=== PATIENT | female | born 1975 | race Caucasian/White ===

== ENCOUNTER 2020-04-19 15:49 | Inpatient (IN) | payer OTHER ==
[~2020-04-19] VITALS: Ht 167.6 cm; Wt 76.9 kg
--- NOTE | ~2020-04-19 | PROC ---
[address] [address] PROCEDURE REPORT Name: ALONSO VALERA Room: [address] IN ..#: [id number] Admission: 04/19/20 Attend Phys: Michael Reid MD Discharge: 04/21/20 Date of : 79 Report #: [id number] THIS REPORT FOR: //name// cc: REG - No family physician/PCP FAM - No family physician/PCP ~ THIS REPORT FOR: //name// For GI report, please see the Provation report in Perceptive 7 content. By: [id number] Records Staff [facility] /DONALD
[2020-04-19] MEDS ORDERED: BUTALB-APAP-CA1 EACH PO (15:57)
[2020-04-19 16:24] LABS: INFLUENZA A ANTIGEN Negative (Negative); INFLUENZA B ANTIGEN Negative (Negative)
[2020-04-19 19:02] LABS: ABSOLUTE BASOPHILS 0.1 thou/uL (0.0-0.2); ABSOLUTE EOSINOPHILS 0.1 thou/uL (0.0-0.7); ABSOLUTE MONOCYTES 0.7 thou/uL (0.0-1.2); ABSOLUTE NEUTROPHILS 4.3 thou/uL (1.6-8.1); EOSINOPHILS 0.8 %; HEMATOCRIT 36.9 % (37.0-47.0); HEMOGLOBIN 12.5 gm/dL (12.0-15.0); MCHC 33.9 g/dL (28.0-37.0); MCV 88.3 fL (80.0-100.0); MONOCYTES 10.8 %; MPV 8.6 fl. (7.2-11.1); NUCLEATED RBCS 0 /100WBC; PLATELET COUNT* 205 thou/uL (150-400); POLYS 71.4 %; RBC 4.18 mil/uL (4.20-5.00); RDW-CV 13.8 % (10.5-14.5); WBC 6.1 thou/uL (4.0-11.0)
[2020-04-19 19:11] LABS: CALCIUM 8.5 mg/dL (8.5-10.1); CREATININE 0.9 mg/dL (0.6-1.3)
[2020-04-19 19:15] LABS: TOTAL BILIRUBIN 0.5 mg/dL (<0.1-1.0); TOTAL PROTEIN 7.9 g/dL (6.4-8.2)
[2020-04-19 20:00] VITALS: BP 137/82
[2020-04-19 23:25] VITALS: BP 96/55
[2020-04-20] VITALS: BP 89/80
[2020-04-20 04:19] VITALS: BP 90/53
[2020-04-20 07:30] VITALS: BP 95/56
[2020-04-20 08:58] LABS: ABSOLUTE LYMPHOCYTES 1.3 thou/uL (0.8-5.3); ABSOLUTE MONOCYTES 0.7 thou/uL (0.0-1.2); ABSOLUTE NEUTROPHILS 4.1 thou/uL (1.6-8.1); BASOPHILS 0.7 %; EOSINOPHILS 0.5 %; HEMATOCRIT 32.3 % (37.0-47.0); HEMOGLOBIN 11.1 gm/dL (12.0-15.0); MCH 29.6 pg (26.0-34.0); MCHC 34.3 g/dL (28.0-37.0); MCV 86.2 fL (80.0-100.0); MONOCYTES 10.7 %; MPV 9.1 fl. (7.2-11.1); NUCLEATED RBCS 0 /100WBC; PLATELET COUNT* 174 thou/uL (150-400); POLYS 67.1 %; RBC 3.74 mil/uL (4.20-5.00); RDW-CV 13.8 % (10.5-14.5); WBC 6.1 thou/uL (4.0-11.0)
[2020-04-20 09:09] LABS: ALBUMIN 2.4 g/dL (3.4-5.0); CALCIUM 7.5 mg/dL (8.5-10.1); CREATININE 0.8 mg/dL (0.6-1.3); POTASSIUM 3.6 mmol/L (3.5-5.1); TOTAL BILIRUBIN 0.5 mg/dL (<0.1-1.0); TOTAL PROTEIN 6.4 g/dL (6.4-8.2)
--- NOTE | 2020-04-20 09:37 | EKG ---
[place] [address] ELECTROCARDIOGRAM REPORT Name: ALONSO VALERA Room: [place] [address] ADM IN [facility]#: [id number] Admission: 04/19/20 Attend Phys: Michael Reid, Discharge: Date of : 79 Date of Service: 04/19/201931 Report #: [id number] THIS REPORT FOR: //name// [facility] ED Test Date: 2020-04-19 Test Time: 19:32:38 Pat Name: ALONSO VALERA Department: Room: [facility] Gender: F Development Professional: MARCUS : 1975 Requested By: Fern Parker Order Number: [id number] MD: Jf Reinoso Measurements Intervals [place] Rate: 93 P: 77 ND: 151 QRS: 57 QRSD: 94 T: 54 QT: 328 QTc: 408 Interpretive Statements Sinus rhythm RSR' in V1 or V2, right VCD or RVH No previous ECG available for comparison Electronically Signed On 04-20-2020 9:37:43 CDT by Jf Reinoso [email or web address] <ELECTRONICALLY SIGNED> By: Jf Reinoso MD, FACC 04/20/20 0937 31 31 Jf Reinoso MD, FAC /EPI
[2020-04-20 12:00] VITALS: BP 90/55
[2020-04-20 15:50] VITALS: BP 99/52
[2020-04-20 20:00] VITALS: BP 97/51
[2020-04-21] VITALS (7 sets, daily range): BP systolic 91–94; BP diastolic 48–72
[2020-04-21 00:47] LABS: URINE BLOOD 3+ (Negative); URINE CLARITY CLEAR; URINE COLOR RED; URINE GLUCOSE-RANDOM TRACE (Negative); URINE KETONES 2+ (Negative); URINE LEUKOCYTES-REFLEX TRACE (Negative); URINE PROTEIN 2+ (Negative); URINE SPECIFIC GRAVITY 1.025 (1.005-1.030)
[2020-04-21 00:49] LABS: ICTOTEST (BILI CONFIRMATORY) Positive (Negative); URINE BILIRUBIN 2+ (Negative); URINE NITRITE-REFLEX POSITIVE (Negative)
[2020-04-21 01:04] LABS: BACTERIA-REFLEX 1-9 Few /HPF (None Seen); CASTS None Seen /LPF (None Seen); CRYSTALS None Seen /LPF (None Seen); SQUAMOUS 0-3 Few /LPF (0-3); URINE RBC >20 Many /HPF (0-2); URINE WBC-REFLEX 0-5 Rare /HPF (0-5)
[2020-04-21 02:06] LABS: HEPATITIS B SURFACE AG Negative (Negative)
[2020-04-21 04:38] LABS: ABSOLUTE LYMPHOCYTES 0.8 thou/uL (0.8-5.3); ABSOLUTE MONOCYTES 0.7 thou/uL (0.0-1.2); ABSOLUTE NEUTROPHILS 5.1 thou/uL (1.6-8.1); BASOPHILS 0.4 %; EOSINOPHILS 0.2 %; HEMATOCRIT 31.4 % (37.0-47.0); HEMOGLOBIN 10.7 gm/dL (12.0-15.0); LYMPHOCYTES 12.3 %; MCH 29.4 pg (26.0-34.0); MCV 86.5 fL (80.0-100.0); MONOCYTES 10.2 %; MPV 8.7 fl. (7.2-11.1); NUCLEATED RBCS 0 /100WBC; PLATELET COUNT* 199 thou/uL (150-400); POLYS 76.9 %; RBC 3.63 mil/uL (4.20-5.00); RDW-CV 13.6 % (10.5-14.5); WBC 6.6 thou/uL (4.0-11.0)
[2020-04-21 04:57] LABS: ALBUMIN 2.3 g/dL (3.4-5.0); CALCIUM 7.6 mg/dL (8.5-10.1); CREATININE 0.9 mg/dL (0.6-1.3); POTASSIUM 3.3 mmol/L (3.5-5.1); TOTAL BILIRUBIN 0.5 mg/dL (<0.1-1.0); TOTAL PROTEIN 6.3 g/dL (6.4-8.2)
[2020-04-21] MEDS ORDERED: PROTONIX40 M2 PO (13:43)
[2020-04-21 13:56] LABS: ABSOLUTE BASOPHILS 0.1 thou/uL (0.0-0.2); ABSOLUTE LYMPHOCYTES 1.3 thou/uL (0.8-5.3); ABSOLUTE MONOCYTES 0.6 thou/uL (0.0-1.2); BASOPHILS 0.9 %; EOSINOPHILS 0.5 %; HEMATOCRIT 32.9 % (37.0-47.0); HEMOGLOBIN 11.2 gm/dL (12.0-15.0); LYMPHOCYTES 21.9 %; MCH 29.9 pg (26.0-34.0); MCV 87.9 fL (80.0-100.0); MONOCYTES 9.6 %; MPV 8.7 fl. (7.2-11.1); NUCLEATED RBCS 0 /100WBC; PLATELET COUNT* 191 thou/uL (150-400); POLYS 67.1 %; RBC 3.75 mil/uL (4.20-5.00); RDW-CV 13.8 % (10.5-14.5)
[2020-04-21 14:14] LABS: CALCIUM 8.1 mg/dL (8.5-10.1); CREATININE 0.9 mg/dL (0.6-1.3); POTASSIUM 3.4 mmol/L (3.5-5.1)
[2020-04-21 14:19] LABS: ALBUMIN 2.3 g/dL (3.4-5.0); TOTAL BILIRUBIN 0.4 mg/dL (<0.1-1.0); TOTAL PROTEIN 6.3 g/dL (6.4-8.2)
[2020-04-22 03:06] LABS: IgG 1278 mg/dL (586-1602); IgM 304 mg/dL (26-217)
[2020-04-22 13:08] LABS: CERULOPLASMIN 34.8 mg/dL (19.0-39.0)
--- NOTE | 2020-04-23 07:38 | CON ---
[address] [address] CONSULTATION Name: ALONSO VALERA Room: [address] IN .R.#: [id number] Admission: 04/19/20 Attend Phys: Michael Reid MD Discharge: 04/21/20 Date of : 79 Report #: [id number] THIS REPORT FOR: //name// cc: REG - No family physician/PCP REG - No family physician/PCP ~ THIS REPORT FOR: //name// CC: [facility] physician/PCP Michael Reid DICTATED BY: Ilene Birmingham [facility] DATE OF SERVICE: 04/20/2020 The patient does not have a PCP. Please note at the time of this dictation, the patient was seen and physically examined by myself. REASON FOR CONSULTATION: Rectal bleeding and abnormal CT, rectal wall thickening. HISTORY OF PRESENT ILLNESS: This is a 44-year-old female who presented to the Emergency Room initially with generalized body aches and fever that has been low-grade. She also has been complaining of rectal bleeding for the past month. She states she will have a bowel movement, which her bowel movements have changed over the last month as well and that they are looser, more diarrhea, she will have rectal bleeding with her bowel movement and also she will have leakage of bright red blood throughout the day as well. Prior to all of that, she states she usually had a bowel movement once daily to every other day and had no issues. She has been having the rectal bleeding on a daily basis that she notices and her bowels are moving more frequently than they have before. She does have a little bit of rectal discomfort, which is present all the time. The patient has not had any upper or lower scopes done and has not had any evaluation for this until now. In talking with the patient, she is very upset and weeping, did not want to really talk about it. She wanted her at the bedside, but not able to come in because of lack of transportation and he cannot spend the night. The patient kept the covers over her face most of the time during the interaction between myself and her. ALLERGIES: No known drug allergies. MEDICATIONS: From home are Fioricet. PAST MEDICAL HISTORY: Migra[place] [address] CONSULTATION Name: ALONSO VALERA Room: [address]#: [id number] Admission: 04/19/20 Attend Phys: Michael Reid MD Discharge: 04/21/20 Date of : 79 Report #: [id number] PAST SURGICAL HISTORY: Cholecystectomy and tubal ligation. FAMILY HISTORY: Significant on paternal side of the family, father and others on paternal site of colon and rectal cancer. Family history on maternal side of the family of female cancers. SOCIAL HISTORY: She is . Alcohol socially. She does tobacco use, a pack a day and she does smoke marijuana on a regular basis to help her cope with the current situation. REVIEW OF SYSTEMS: Twelve-point review of systems is essentially negative except what is mentioned in the HPI. PHYSICAL EXAMINATION: VITAL SIGNS: Temperature 36.9, pulse 79, respirations 18, blood pressure 90/53. HEART: Regular rate and rhythm. LUNGS: Clear. ABDOMEN: Soft, positive bowel sounds in all 4 quadrants with some very slight tenderness noted in the right lower quadrant. LABORATORY DATA: Hemoglobin on admission was 12.5, she is 11.1, white count 6.1, platelets 174. GFR is 79. Total bilirubin is 0.5, alkaline phosphatase was elevated on admission at 366, she is down to 316; ALT was 321, she is down to 253; and AST 257, down to 162. Acute hepatitis panel is pending CT scan showed soft tissue edema and wall thickening of the rectum with significant perirectal soft tissue swelling extending into the anal region. IMPRESSION: 1. Rectal bleeding x 1 month. 2. Change in bowel habits. 3. Rectal discomfort. 4. Abnormal CT. 5. Elevated LFTs. 6. Anemia. 7. Family history paternal side including father colon and rectal cancer, also family history on maternal side of female cancers. PLAN: 1. Colonoscopy tomorrow with Dr. Wong. 2. Further recommendations to be made after the procedure has been performed. 3. Acute hepatitis panel is pending and consider an ultrasound of [place] [address] CONSULTATION Name: ALONSO VALERA Room: [address]#: [id number] Admission: 04/19/20 Attend Phys: Michael Reid MD Discharge: 04/21/20 Date of : 79 Report #: [id number] Thank you for allowing us to participate in this patient's care. Please do not hesitate to call with any questions in regard to this consult. <ELECTRONICALLY SIGNED> By: Phil Wong DO 04/23/20 0738 [id number] Wong DO /nt
[2020-04-23 14:07] LABS: ANA INTERPRETATION Negative (Negative)
== END 2020-04-21 17:47 | disposition home or self-care (01) | DRG 377 ==
LOC: M.ERS 15:49 → M.TBA-ER 22:25 → M.2W 23:40
PROVIDERS: Internal Medicine Gastroenterology; Nurse Practitioner; Nurse Practitioner Family; Personal Emergency Response Attendant; ADMIT Internal Medicine; ATTEND Internal Medicine
PROC: 0DJ08ZZ Inspection of Upper Intestinal Tract, Via Natural or Artificial Opening Endoscopic (ICD-10-PCS; principal; 2020-04-21)
PROC: 0DBP8ZX Excision of Rectum, Via Natural or Artificial Opening Endoscopic, Diagnostic (ICD-10-PCS; principal; 2020-04-21)
DX: K92.2 Gastrointestinal hemorrhage, unspecified (principal); E43 Unspecified severe protein-calorie malnutrition; G43.909 Migraine, unspecified, not intractable, without status migrainosus; K62.89 Other specified diseases of anus and rectum; D64.9 Anemia, unspecified; F17.210 Nicotine dependence, cigarettes, uncomplicated; K44.9 Diaphragmatic hernia without obstruction or gangrene; K64.4 Residual hemorrhoidal skin tags; Z20.828 Contact with and (suspected) exposure to other viral communicable diseases; Z90.49 Acquired absence of other specified parts of digestive tract; Z79.899 Other long term (current) drug therapy; Z28.21 Immunization not carried out because of patient refusal